=== PATIENT | male | born 1975 | race Caucasian/White ===

== ENCOUNTER 2024-09-01 07:55 | Outpatient (AMB) | payer MEDICARE, SELFPAY ==
--- OUTSIDE RECORDS SUMMARY | 2024-09-01 07:58 | XMS_ITS | Encounter Summary ---
Author Organization [employer] Address [address] [place] [address] Care Team Providers Care Shop Worker Name Role Phone Robert Moon MD Primary Care Provider [phone] Encounter Details Date Type Department Care Team (Latest Contact Info) Description 04/13/2024 Lab Requisition [facility] - Main Lab [address] [facility] [place] [address] Robert Moon MD [address] [place] [address] [address] SINAN Aguirre Schizoaffective disorder, unspecified (CMS/HCC V24, CMS/HCC V28) Social History Tobacco Use Types Packs/Day Years Used Date Smoking Tobacco: Never Assessed Sex and Gender Information Value Date Recorded Sex Assigned at Not on file Legal Sex Male 10:23 PM EST Gender Identity Not on file Sexual Orientation Not on file documented as of this encounter Plan of Treatment Not on file documented as of this encounter Procedures Procedure Name Priority Date/Time Associated Diagnosis Comments LIPID PANEL WITH REFLEX TO DIRECT LDL Routine 04/13/2024 6:55 AM EST Schizoaffective disorder, unspecified (CMS/HCC) CBC WITH AUTO DIFFERENTIAL Routine 04/13/2024 6:55 AM EST Schizoaffective disorder, unspecified (CMS/HCC) LAVENDER - EDTA Routine 04/13/2024 6:55 AM EST Schizoaffective disorder, unspecified (CMS/HCC) CBC AND DIFFERENTIAL Routine 04/13/2024 6:55 AM EST Schizoaffective disorder, unspecified (CMS/HCC) HEMOGLOBIN A1C Routine 04/13/2024 6:55 AM EST Schizoaffective disorder, unspecified (CMS/HCC) AMMONIA Routine 04/13/2024 6:55 AM EST Schizoaffective disorder, unspecified (CMS/HCC) COMPREHENSIVE METABOLIC PANEL Routine 04/13/2024 6:55 AM EST Schizoaffective disorder, unspecified (CMS/HCC) documented in this encounter Results * Lavender tube (04/13/2024 6:55 AM EST) Pathologist [facility] Extra Tube Hold for add-ons. 04/13/2024 9:01 AM [facility] Comment:Auto resulted. Blood Venous blood specimen / Unknown 04/13/2024 6:55 AM EST 04/13/2024 7:18 AM EST us Robert Moon MD LAB BLOOD ORDERABLES Final Resul t [facility] [address] [place] [address], * (ABNORMAL) CBC auto differential (04/13/2024 6:55 AM EST) [facility] WBC 4.7(L) 4.8 - 10.8 K/mcL LAB HEMETOLOGY METHOD 04/13/2024 7:32 AM [facility] RBC 5.30 4.50 - 5.50 M/mcL LAB HEMETOLOGY METHOD 04/13/2024 7:32 AM [facility] Hemoglobin 13.3(L) 13.5 - 17.5 g/dL LAB HEMETOLOGY METHOD 04/13/2024 7:32 AM [facility] Hematocrit 42.7 42.0 - 54.0 % LAB HEMETOLOGY METHOD 04/13/2024 7:32 AM [facility] MCV 80.7 79.0 - 98.0 FL LAB HEMETOLOGY METHOD 04/13/2024 7:32 AM [facility] MCH 25.1(L) 27.0 - 32.0 pcg LAB HEMETOLOGY METHOD 04/13/2024 7:32 AM [facility] MCHC 31.1(L) 32.0 - 37.0 g/dL LAB HEMETOLOGY METHOD 04/13/2024 7:32 AM [facility] RDW 15.0 11.0 - 15.0 % LAB HEMETOLOGY METHOD 04/13/2024 7:32 AM [facility] Platelets 260 130 - 400 K/mcL LAB HEMETOLOGY METHOD 04/13/2024 7:32 AM [facility] MPV 9.6 7.0 - 11.0 FL LAB HEMETOLOGY METHOD 04/13/2024 7:32 AM [facility] NRBC 0.0 <1.0 % LAB HEMETOLOGY METHOD 04/13/2024 7:32 AM [facility] NRBC Absolute 0.00 <0.10 K/mcL LAB HEMETOLOGY METHOD 04/13/2024 7:32 AM [facility] Neutrophils Relative 54.6 % LAB HEMETOLOGY METHOD 04/13/2024 7:32 AM [facility] Lymphocytes Relative 30.8 % LAB HEMETOLOGY METHOD 04/13/2024 7:32 AM [facility] Monocytes Relative 9.7 % LAB HEMETOLOGY METHOD 04/13/2024 7:32 AM [facility] Eosinophils Relative 4.3 % LAB HEMETOLOGY METHOD 04/13/2024 7:32 AM [facility] Basophils Relative 0.4 % LAB HEMETOLOGY METHOD 04/13/2024 7:32 AM [facility] Immature Granulocytes Relative 0.2 % LAB HEMETOLOGY METHOD 04/13/2024 7:32 AM [facility] Neutrophils Absolute 2.54 1.50 - 7.00 K/mcL LAB HEMETOLOGY METHOD 04/13/2024 7:32 AM EST [facility] Lymphocytes Absolute 1.43 1.00 - 5.00 K/mcL LAB HEMETOLOGY METHOD 04/13/2024 7:32 AM EST [facility] Monocytes Absolute 0.45 0.20 - 1.00 K/mcL LAB HEMETOLOGY METHOD 04/13/2024 7:32 AM EST [facility] Eosinophils Absolute 0.20 0.00 - 0.50 K/[facility] LAB HEMETOLOGY METHOD 04/13/2024 7:32 AM EST [facility] Basophils Absolute 0.02 0.00 - 0.20 K/[facility] LAB HEMETOLOGY METHOD 04/13/2024 7:32 AM EST [facility] Immature Granulocytes Absolute 0.01 0.00 - 0.03 K/[facility] LAB HEMETOLOGY METHOD 04/13/2024 7:32 AM EST [facility] Blood Venous blood specimen / Unknown 04/13/2024 6:55 AM EST 04/13/2024 7:15 AM EST us Robert Moon MD LAB BLOOD ORDERABLES Final Resul t Performing Organization Address City/[facility]/ZIP Co de Phone Number [facility] [address] [place] [address], [place] [phone] * (ABNORMAL) Ammonia (04/13/2024 6:55 AM EST) Ammonia 48(H) 11 - 35 mcmol/L LAB CHEMISTRY METHOD 04/13/2024 7:42 AM EST [facility] Blood Venous blood specimen / Unknown 04/13/2024 6:55 AM EST 04/13/2024 7:15 AM EST us Robert Moon MD LAB BLOOD ORDERABLES Final Resul t [facility] [address] [place] [address], [place] [phone] * (ABNORMAL) Hemoglobin A1c (04/13/2024 6:55 AM EST) Pathologist [facility] Hemoglobin A1C 8.5(H) <6.5 % LAB CHEMISTRY METHOD 04/13/2024 12:40 PM EST [facility] Mean Bld Glu Estim. 197 mg/dL LAB CHEMISTRY METHOD 04/13/2024 12:40 PM [facility] Blood Venous blood specimen / Unknown 04/13/2024 6:55 AM EST 04/13/2024 7:15 AM EST Robert Moon MD LAB BLOOD ORDERABLES Final Resul t [facility] [address] [place] [address], [place] [phone] * (ABNORMAL) Lipid panel with reflex to direct LDL (04/13/2024 6:55 AM EST) Pathologist [facility] Cholesterol 167 0 - 200 mg/dL LAB CHEMISTRY METHOD 04/13/2024 7:47 AM [facility] Triglycerides 161(H) 0 - 150 mg/dL LAB CHEMISTRY METHOD 04/13/2024 7:47 AM [facility] HDL 38(L) >=40 mg/dL LAB CHEMISTRY METHOD 04/13/2024 7:47 AM [facility] LDL Calculated 97 0 - 100 mg/dL LAB CHEMISTRY METHOD 04/13/2024 7:47 AM [facility] VLDL Cholesterol James 32.2 mg/dL LAB CHEMISTRY METHOD 04/13/2024 7:47 AM [facility] Non HDL Chol. (LDL+VLDL) 129 <145 mg/dL LAB CHEMISTRY METHOD 04/13/2024 7:47 AM [facility] Chol/HDL Ratio 4.4 0.0 - 4.4 LAB CHEMISTRY METHOD 04/13/2024 7:47 AM [facility] Blood Venous blood specimen / Unknown 04/13/2024 6:55 AM EST 04/13/2024 7:15 AM EST us Robert Moon MD LAB BLOOD ORDERABLES Final Resul t [facility] [address] [place] [address], * (ABNORMAL) Comprehensive metabolic panel (04/13/2024 6:55 AM EST) Sodium 134 133 - 145 mmol/L LAB CHEMISTRY METHOD 04/13/2024 7:47 AM [facility] Potassium 4.1 3.5 - 5.5 mmol/L LAB CHEMISTRY METHOD 04/13/2024 7:47 AM [facility] Chloride 100 96 - 110 mmol/L LAB CHEMISTRY METHOD 04/13/2024 7:47 AM [facility] CO2 27 21 - 32 mmol/L LAB CHEMISTRY METHOD 04/13/2024 7:47 AM [facility] Anion Gap 7 3 - 11 LAB CHEMISTRY METHOD 04/13/2024 7:47 AM [facility] Glucose 203(H) 70 - 100 mg/dL LAB CHEMISTRY METHOD 04/13/2024 7:47 AM [facility] BUN 13 5 - 25 mg/dL LAB CHEMISTRY METHOD 04/13/2024 7:47 AM [facility] Creatinine 1.06 0.70 - 1.30 mg/dL LAB CHEMISTRY METHOD 04/13/2024 7:47 AM [facility] eGFR 85 >=60 mL/min/1. 73m2 LAB CHEMISTRY METHOD 04/13/2024 7:47 AM [facility] Comment:Calculation based on the??Chronic Kidney Disease Epidemiology Collaboration (CKD-EPI) equation refit??without adjustment for race. BUN/Creatinine Ratio 12.3 LAB CHEMISTRY METHOD 04/13/2024 7:47 AM [facility] Calcium 9.5 8.5 - 10.5 mg/dL LAB CHEMISTRY METHOD 04/13/2024 7:47 AM [facility] AST (SGOT) 24 10 - 42 unit/L LAB CHEMISTRY METHOD 04/13/2024 7:47 AM [facility] ALT (SGPT) 27 10 - 60 unit/L LAB CHEMISTRY METHOD 04/13/2024 7:47 AM [facility] Alkaline Phosphatase 85 42 - 121 unit/L LAB CHEMISTRY METHOD 04/13/2024 7:47 AM [facility] Total Protein 7.7 6.0 - 8.0 g/dL LAB CHEMISTRY METHOD 04/13/2024 7:47 AM [facility] Albumin 4.0 3.2 - 5.0 g/dL LAB CHEMISTRY METHOD 04/13/2024 7:47 AM [facility] Total Bilirubin 0.4 0.0 - 1.4 mg/dL LAB CHEMISTRY METHOD 04/13/2024 7:47 AM [facility] Blood Venous blood specimen / Unknown 04/13/2024 6:55 AM EST 04/13/2024 7:15 AM EST us Robert Moon MD LAB BLOOD ORDERABLES Final Resul t [facility] [address] [place] [address], [place] [phone] documented in this encounter Visit Diagnoses Diagnosis Schizoaffective disorder, unspecified (CMS/HCC V24, CMS/HCC V28) documented in this encounter Care Teams Shop Worker Relationship Specialty Start Date End Date Robert Moon MD [address] [facility] SINAN Aguirre PCP - General Internal Medicine 06/27/24 documented as of this encounter
--- OUTSIDE RECORDS SUMMARY | 2024-09-01 07:58 | XMS_ITS | Encounter Summary ---
Author Organization [employer] Address [address] [place] [address] Care Team Providers Care Training Specialist Name Role Phone Robert Moon MD Primary Care Provider [phone] Encounter Details Date Type Department Care Team (Latest Contact Info) Description 07/14/2024 Lab Requisition [facility] - Main Lab [address] [facility] [place] [employer] [place] [address] Robert Moon MD [address] [place] [address] [address] SINAN Aguirre Schizoaffective disorder, unspecified (CMS/HCC V24, CMS/HCC V28); Type 2 diabetes mellitus without complications (CMS/HCC V24, CMS/HCC V28); Hyperlipidemia, unspecified Social History Tobacco Use Types Packs/Day Years [...] PANEL WITH REFLEX TO DIRECT LDL Routine 07/14/2024 6:30 AM EST Schizoaffective disorder, unspecified (CMS/HCC) Type 2 diabetes mellitus without complications (CMS/HCC) Hyperlipidemia, unspecified CBC WITH AUTO DIFFERENTIAL Routine 07/14/2024 6:30 AM EST Schizoaffective disorder, unspecified (CMS/HCC) Type 2 diabetes mellitus without complications (CMS/HCC) Hyperlipidemia, unspecified LAVENDER - EDTA Routine 07/14/2024 6:30 AM EST Schizoaffective disorder, unspecified (CMS/HCC) Type 2 diabetes mellitus without complications (CMS/HCC) Hyperlipidemia, unspecified CBC AND DIFFERENTIAL Routine 07/14/2024 6:30 AM EST Schizoaffective disorder, unspecified (CMS/HCC) Type 2 diabetes mellitus without complications (CMS/HCC) Hyperlipidemia, unspecified HEMOGLOBIN A1C Routine 07/14/2024 6:30 AM EST Schizoaffective disorder, unspecified (CMS/HCC) Type 2 diabetes mellitus without complications (CMS/HCC) Hyperlipidemia, unspecified AMMONIA Routine 07/14/2024 6:30 AM EST Schizoaffective disorder, unspecified (CMS/HCC) Type 2 diabetes mellitus without complications (CMS/HCC) Hyperlipidemia, unspecified COMPREHENSIVE METABOLIC PANEL Routine 07/14/2024 6:30 AM EST Schizoaffective disorder, unspecified (CMS/HCC) Type 2 diabetes mellitus without complications (CMS/HCC) Hyperlipidemia, unspecified documented in this encounter Results * Lavender tube (07/14/2024 6:30 AM EST) Pathologist [facility] Extra Tube Hold for add-ons. 07/14/2024 9:01 AM EST [facility] Comment:Auto resulted. Blood Venous blood specimen / Unknown 07/14/2024 6:30 AM EST 07/14/2024 7:29 AM EST us Robert Moon MD LAB BLOOD ORDERABLES Final Resul t [facility] [address] [place] [address], * (ABNORMAL) CBC auto differential (07/14/2024 6:30 AM EST) Pathologist [facility] WBC 6.5 4.8 - 10.8 K/[facility] LAB HEMETOLOGY METHOD 07/14/2024 7:40 AM EST [facility] RBC 5.60(H) 4.50 - 5.50 M/[facility] LAB HEMETOLOGY METHOD 07/14/2024 7:40 AM EST [facility] Hemoglobin 13.3(L) 13.5 - 17.5 g/dL LAB HEMETOLOGY METHOD 07/14/2024 7:40 AM [facility] Hematocrit 42.9 42.0 - 54.0 % LAB HEMETOLOGY METHOD 07/14/2024 7:40 AM [facility] MCV 76.5(L) 79.0 - 98.0 FL LAB HEMETOLOGY METHOD 07/14/2024 7:40 AM [facility] MCH 23.7(L) 27.0 - 32.0 pcg LAB HEMETOLOGY METHOD 07/14/2024 7:40 AM [facility] MCHC 31.0(L) 32.0 - 37.0 g/dL LAB HEMETOLOGY METHOD 07/14/2024 7:40 AM [facility] RDW 15.9(H) 11.0 - 15.0 % LAB HEMETOLOGY METHOD 07/14/2024 7:40 AM [facility] Platelets 274 130 - 400 K/mcL LAB HEMETOLOGY METHOD 07/14/2024 7:40 AM [facility] MPV 9.5 7.0 - 11.0 FL LAB HEMETOLOGY METHOD 07/14/2024 7:40 AM [facility] NRBC 0.0 <1.0 % LAB HEMETOLOGY METHOD 07/14/2024 7:40 AM [facility] NRBC Absolute 0.00 <0.10 K/mcL LAB HEMETOLOGY METHOD 07/14/2024 7:40 AM [facility] Neutrophils Relative 57.9 % LAB HEMETOLOGY METHOD 07/14/2024 7:40 AM [facility] Lymphocytes Relative 30.1 % LAB HEMETOLOGY METHOD 07/14/2024 7:40 AM [facility] Monocytes Relative 7.8 % LAB HEMETOLOGY METHOD 07/14/2024 7:40 AM EST [facility] Eosinophils Relative 3.3 % LAB HEMETOLOGY METHOD 07/14/2024 7:40 AM [facility] Basophils Relative 0.6 % LAB HEMETOLOGY METHOD 07/14/2024 7:40 AM [facility] Immature Granulocytes Relative 0.3 % LAB HEMETOLOGY METHOD 07/14/2024 7:40 AM EST [facility] Neutrophils Absolute 3.74 1.50 - 7.00 K/mcL LAB HEMETOLOGY METHOD 07/14/2024 7:40 AM EST [facility] Lymphocytes Absolute 1.94 1.00 - 5.00 K/mcL LAB HEMETOLOGY METHOD 07/14/2024 7:40 AM [facility] Monocytes Absolute 0.50 0.20 - 1.00 K/mcL LAB HEMETOLOGY METHOD 07/14/2024 7:40 AM EST [facility] Eosinophils Absolute 0.21 0.00 - 0.50 K/mcL LAB HEMETOLOGY METHOD 07/14/2024 7:40 AM EST [facility] Basophils Absolute 0.04 0.00 - 0.20 K/mcL LAB HEMETOLOGY METHOD 07/14/2024 7:40 AM [facility] Immature Granulocytes Absolute 0.02 0.00 - 0.03 K/mcL LAB HEMETOLOGY METHOD 07/14/2024 7:40 AM EST [facility] Blood Venous blood specimen / Unknown 07/14/2024 6:30 AM EST 07/14/2024 7:29 AM EST us Robert Moon MD LAB BLOOD ORDERABLES Final Resul t [facility] [address] [place] [address], * (ABNORMAL) Hemoglobin A1c (07/14/2024 6:30 AM EST) Hemoglobin A1C 9.4(H) <6.5 % LAB CHEMISTRY METHOD 07/14/2024 10:22 AM [facility] Mean Bld Glu Estim. 223 mg/dL LAB CHEMISTRY METHOD 07/14/2024 10:22 AM [facility] Blood Venous blood specimen / Unknown 07/14/2024 6:30 AM EST 07/14/2024 7:29 AM EST us Robert Moon MD LAB BLOOD ORDERABLES Final Resul t [facility] [address] [place] [address], [place] [phone] * (ABNORMAL) Lipid panel with reflex to direct LDL (07/14/2024 6:30 AM EST) Cholesterol 118 0 - 200 mg/dL LAB CHEMISTRY METHOD 07/14/2024 8:43 AM [facility] Triglycerides 214(H) 0 - 150 mg/dL LAB CHEMISTRY METHOD 07/14/2024 8:43 AM [facility] HDL 26(L) >=40 mg/dL LAB CHEMISTRY METHOD 07/14/2024 8:43 AM [facility] LDL Calculated 49 0 - 100 mg/dL LAB CHEMISTRY METHOD 07/14/2024 8:43 AM [facility] VLDL Cholesterol James 42.8 mg/dL LAB CHEMISTRY METHOD 07/14/2024 8:43 AM [facility] Non HDL Chol. (LDL+VLDL) 92 <145 mg/dL LAB CHEMISTRY METHOD 07/14/2024 8:43 AM [facility] Chol/HDL Ratio 4.5(H) 0.0 - 4.4 LAB CHEMISTRY METHOD 07/14/2024 8:43 AM [facility] Blood Venous blood specimen / Unknown 07/14/2024 6:30 AM EST 07/14/2024 7:29 AM EST us Robert Moon MD LAB BLOOD ORDERABLES Final Resul t Performing Organization Address [facility]/ZIP Co de Phone Number [facility] [address] [place] [address], [place] [phone] * (ABNORMAL) Ammonia (07/14/2024 6:30 AM EST) Ammonia 46(H) 11 - 35 mcmol/L LAB CHEMISTRY METHOD 07/14/2024 8:13 AM EST [facility] Blood Venous blood specimen / Unknown 07/14/2024 6:30 AM EST 07/14/2024 7:29 AM EST us Robert Moon MD LAB BLOOD ORDERABLES Final Resul t Performing Organization Address [facility]/ZIP Co de Phone Number [facility] [address] [place] [address], [place] [phone] * (ABNORMAL) Comprehensive metabolic panel (07/14/2024 6:30 AM EST) Pathologist [facility] Sodium 134 133 - 145 mmol/L LAB CHEMISTRY METHOD 07/14/2024 8:42 AM [facility] Potassium 4.6 3.5 - 5.5 mmol/L LAB CHEMISTRY METHOD 07/14/2024 8:42 AM [facility] Chloride 99 96 - 110 mmol/L LAB CHEMISTRY METHOD 07/14/2024 8:42 AM [facility] CO2 26 21 - 32 mmol/L LAB CHEMISTRY METHOD 07/14/2024 8:42 AM [facility] Anion Gap 9 3 - 11 LAB CHEMISTRY METHOD 07/14/2024 8:42 AM [facility] Glucose 258(H) 70 - 100 mg/dL LAB CHEMISTRY METHOD 07/14/2024 8:42 AM [facility] BUN 16 5 - 25 mg/dL LAB CHEMISTRY METHOD 07/14/2024 8:42 AM [facility] Creatinine 1.09 0.70 - 1.30 mg/dL LAB CHEMISTRY METHOD 07/14/2024 8:42 AM [facility] eGFR 83 >=60 mL/min/1. 73m2 LAB CHEMISTRY METHOD 07/14/2024 8:42 AM [facility] Comment:Calculation based on the??Chronic Kidney Disease Epidemiology Collaboration (CKD-EPI) equation refit??without adjustment for race. BUN/Creatinine Ratio 14.7 LAB CHEMISTRY METHOD 07/14/2024 8:42 AM [facility] Calcium 9.3 8.5 - 10.5 mg/dL LAB CHEMISTRY METHOD 07/14/2024 8:42 AM [facility] AST (SGOT) 23 10 - 42 unit/L LAB CHEMISTRY METHOD 07/14/2024 8:42 AM [facility] ALT (SGPT) 28 10 - 60 unit/L LAB CHEMISTRY METHOD 07/14/2024 8:42 AM [facility] Alkaline Phosphatase 96 42 - 121 unit/L LAB CHEMISTRY METHOD 07/14/2024 8:42 AM [facility] Total Protein 7.8 6.0 - 8.0 g/dL LAB CHEMISTRY METHOD 07/14/2024 8:42 AM [facility] Albumin 4.1 3.2 - 5.0 g/dL LAB CHEMISTRY METHOD 07/14/2024 8:42 AM [facility] Total Bilirubin 0.3 0.0 - 1.4 mg/dL LAB CHEMISTRY METHOD 07/14/2024 8:42 AM [facility] Blood Venous blood specimen / Unknown 07/14/2024 6:30 AM EST 07/14/2024 7:29 AM EST Robert Moon MD LAB BLOOD ORDERABLES Final Resul t [facility] [address] [place] [address], documented in this encounter Visit Diagnoses Diagnosis Schizoaffective disorder, unspecified ([facility] V24, [facility] V28) Type 2 diabetes mellitus without complications ([facility] V24, [facility] V28) Hyperlipidemia, unspecified documented in this encounter Care Teams Training Specialist Relationship Specialty Start Date End Date Robert Moon MD [address] [place] [address] Dr [address] [place], [place] PCP - General Internal Medicine 06/27/24 documented as of this encounter
--- OUTSIDE RECORDS SUMMARY | 2024-09-01 07:58 | XMS_ITS | Encounter Summary ---
Author Organization [facility] Address [address] [place] [address] Care Team Providers Care Operating Room Coordinator Name Role Phone Robert Moon MD Primary Care Provider Encounter Details Date Type Department Care Team (Late st Contact Info) Description 07/05/2024 Lab Requisition [facility] - Main Lab [address] [place] [address] Robert Moon MD [address] [place] [address] [address] [place] Other mcfp (current) drug therapy Social History Tobacco Use Types Packs/Day Years [...] Procedure Name Priority Date/Time Associated Diagnosis Comments CBC WITH AUTO DIFFERENTIAL Routine 07/05/2024 7:30 AM EST Other mcfp (current) drug therapy CBC AND DIFFERENTIAL Routine 07/05/2024 7:30 AM EST Other mcfp (current) drug therapy documented in this encounter Results * (ABNORMAL) CBC auto differential (07/05/2024 7:30 AM EST) WBC 6.0 4.8 - 10.8 K/mcL LAB HEMETOLOGY METHOD 07/05/2024 8:18 AM EST [facility] LAB RBC 5.70(H) 4.50 - 5.50 M/mcL LAB HEMETOLOGY METHOD 07/05/2024 8:18 AM EST [facility] LAB Hemoglobin 13.6 13.5 - 17.5 g/dL LAB HEMETOLOGY METHOD 07/05/2024 8:18 AM [facility] LAB Hematocrit 44.1 42.0 - 54.0 % LAB HEMETOLOGY METHOD 07/05/2024 8:18 AM [facility] LAB MCV 78.1(L) 79.0 - 98.0 FL LAB HEMETOLOGY METHOD 07/05/2024 8:18 AM [facility] LAB MCH 24.1(L) 27.0 - 32.0 pcg LAB HEMETOLOGY METHOD 07/05/2024 8:18 AM [facility] LAB MCHC 30.8(L) 32.0 - 37.0 g/dL LAB HEMETOLOGY METHOD 07/05/2024 8:18 AM [facility] LAB RDW 15.5(H) 11.0 - 15.0 % LAB HEMETOLOGY METHOD 07/05/2024 8:18 AM [facility] LAB Platelets 302 130 - 400 K/mcL LAB HEMETOLOGY METHOD 07/05/2024 8:18 AM [facility] LAB MPV 9.9 7.0 - 11.0 FL LAB HEMETOLOGY METHOD 07/05/2024 8:18 AM [facility] LAB NRBC 0.0 <1.0 % LAB HEMETOLOGY METHOD 07/05/2024 8:18 AM [facility] LAB NRBC Absolute 0.00 <0.10 K/mcL LAB HEMETOLOGY METHOD 07/05/2024 8:18 AM [facility] LAB Neutrophils Relative 62.7 % LAB HEMETOLOGY METHOD 07/05/2024 8:18 AM [facility] LAB Lymphocytes Relative 25.9 % LAB HEMETOLOGY METHOD 07/05/2024 8:18 AM [facility] Monocytes Relative 8.5 % LAB HEMETOLOGY METHOD 07/05/2024 8:18 AM [facility] LAB Eosinophils Relative 2.3 % LAB HEMETOLOGY METHOD 07/05/2024 8:18 AM EST [facility] LAB Basophils Relative 0.3 % LAB HEMETOLOGY METHOD 07/05/2024 8:18 AM [facility] LAB Immature Granulocytes Relative 0.3 % LAB HEMETOLOGY METHOD 07/05/2024 8:18 AM [facility] LAB Neutrophils Absolute 3.75 1.50 - 7.00 K/mcL LAB HEMETOLOGY METHOD 07/05/2024 8:18 AM [facility] LAB Lymphocytes Absolute 1.55 1.00 - 5.00 K/mcL LAB HEMETOLOGY METHOD 07/05/2024 8:18 AM [facility] LAB Monocytes Absolute 0.51 0.20 - 1.00 K/mcL LAB HEMETOLOGY METHOD 07/05/2024 8:18 AM [facility] LAB Eosinophils Absolute 0.14 0.00 - 0.50 K/mcL LAB HEMETOLOGY METHOD 07/05/2024 8:18 AM [facility] LAB Basophils Absolute 0.02 0.00 - 0.20 K/mcL LAB HEMETOLOGY METHOD 07/05/2024 8:18 AM [facility] LAB Immature Granulocytes Absolute 0.02 0.00 - 0.03 K/mcL LAB HEMETOLOGY METHOD 07/05/2024 8:18 AM [facility] LAB Blood Venous blood specimen / Unknown 07/05/2024 7:30 AM EST 07/05/2024 8:09 AM EST us Robert Moon MD LAB BLOOD ORDERABLES Final Resul t [facility]) [facility] [address] [place] [address], documented in this encounter Visit Diagnoses Diagnosis Other mcfp (current) drug therapy documented in this encounter Care Teams Operating Room Coordinator Relationship Specialty Start Date End Date Robert Moon MD [address] [place] [address] Dr [address] SINAN Aguirre PCP - General Internal Medicine 06/27/24 documented as of this encounter
--- OUTSIDE RECORDS SUMMARY | 2024-09-01 07:58 | XMS_ITS | Encounter Summary ---
Author Organization [facility] Address [address] [place] [address] Care Team Providers Care Face Boss Name Role Phone Robert Moon MD Primary Care Provider [phone] Encounter Details Date Type Department Care Team (Late st Contact Info) Description 06/02/2024 Lab Requisition [facility] - Main Lab [address] [place] [address] Robert Moon MD [address] [place] [address] [address] [place] Other alf (current) drug therapy Social History Tobacco Use [...] Diagnosis Comments CBC WITH AUTO DIFFERENTIAL Routine 06/02/2024 6:20 AM EST Other alf (current) drug therapy CBC AND DIFFERENTIAL Routine 06/02/2024 6:20 AM EST Other alf (current) drug therapy documented in this encounter Results * (ABNORMAL) CBC auto differential (06/02/2024 6:20 AM EST) WBC 5.6 4.8 - 10.8 K/mcL LAB HEMETOLOGY METHOD 06/02/2024 7:54 AM EST [facility] LAB RBC 5.40 4.50 - 5.50 M/mcL LAB HEMETOLOGY METHOD 06/02/2024 7:54 AM EST [facility] LAB Hemoglobin 13.0(L) 13.5 - 17.5 g/dL LAB HEMETOLOGY METHOD 06/02/2024 7:54 AM [facility] LAB Hematocrit 43.2 42.0 - 54.0 % LAB HEMETOLOGY METHOD 06/02/2024 7:54 AM [facility] LAB MCV 80.6 79.0 - 98.0 FL LAB HEMETOLOGY METHOD 06/02/2024 7:54 AM [facility] LAB MCH 24.3(L) 27.0 - 32.0 pcg LAB HEMETOLOGY METHOD 06/02/2024 7:54 AM [facility] LAB MCHC 30.1(L) 32.0 - 37.0 g/dL LAB HEMETOLOGY METHOD 06/02/2024 7:54 AM [facility] LAB RDW 15.2(H) 11.0 - 15.0 % LAB HEMETOLOGY METHOD 06/02/2024 7:54 AM [facility] LAB Platelets 301 130 - 400 K/mcL LAB HEMETOLOGY METHOD 06/02/2024 7:54 AM [facility] LAB MPV 9.5 7.0 - 11.0 FL LAB HEMETOLOGY METHOD 06/02/2024 7:54 AM [facility] LAB NRBC 0.0 <1.0 % LAB HEMETOLOGY METHOD 06/02/2024 7:54 AM [facility] LAB NRBC Absolute 0.00 <0.10 K/mcL LAB HEMETOLOGY METHOD 06/02/2024 7:54 AM [facility] Neutrophils Relative 48.5 % LAB HEMETOLOGY METHOD 06/02/2024 7:54 AM [facility] Lymphocytes Relative 36.9 % LAB HEMETOLOGY METHOD 06/02/2024 7:54 AM [facility] Monocytes Relative 9.2 % LAB HEMETOLOGY METHOD 06/02/2024 7:54 AM [facility] Eosinophils Relative 4.5 % LAB HEMETOLOGY METHOD 06/02/2024 7:54 AM [facility] Basophils Relative 0.5 % LAB HEMETOLOGY METHOD 06/02/2024 7:54 AM [facility] Immature Granulocytes Relative 0.4 % LAB HEMETOLOGY METHOD 06/02/2024 7:54 AM [facility] Neutrophils Absolute 2.70 1.50 - 7.00 K/mcL LAB HEMETOLOGY METHOD 06/02/2024 7:54 AM [facility] Lymphocytes Absolute 2.05 1.00 - 5.00 K/mcL LAB HEMETOLOGY METHOD 06/02/2024 7:54 AM [facility] Monocytes Absolute 0.51 0.20 - 1.00 K/mcL LAB HEMETOLOGY METHOD 06/02/2024 7:54 AM [facility] Eosinophils Absolute 0.25 0.00 - 0.50 K/mcL LAB HEMETOLOGY METHOD 06/02/2024 7:54 AM [facility] Basophils Absolute 0.03 0.00 - 0.20 K/mcL LAB HEMETOLOGY METHOD 06/02/2024 7:54 AM [facility] Immature Granulocytes Absolute 0.02 0.00 - 0.03 K/mcL LAB HEMETOLOGY METHOD 06/02/2024 7:54 AM [facility] Blood Venous blood specimen / Unknown 06/02/2024 6:20 AM EST 06/02/2024 7:33 AM EST us Robert Moon MD LAB BLOOD ORDERABLES Final Resul t [facility]) [facility] [address] [place] [address], documented in this encounter Visit Diagnoses Diagnosis Other termite helper (current) drug therapy documented in this encounter Care Teams Face Boss Relationship Specialty Start Date End Date Robert Moon MD [address] [place] [address] Dr [address] SINAN Aguirre PCP - General Internal Medicine 06/27/24 documented as of this encounter
--- OUTSIDE RECORDS SUMMARY | 2024-09-01 07:58 | XMS_ITS | Encounter Summary ---
Author Organization [employer] [facility] Address [address] [place] [address] Care Team Providers Care Senior Ux Designer Name Role Phone Robert Moon MD Primary Care Provider [phone] Encounter Details Date Type Department Care Team (Late st Contact Info) Description 08/09/2024 Lab Requisition [facility] - Main Lab [address] [place] [address] Robert Moon MD [address] [place] [address] [address] [place] Other care home (current) drug therapy Social History Tobacco Use [...] Diagnosis Comments CBC WITH AUTO DIFFERENTIAL Routine 08/09/2024 4:55 AM EDT Other care home (current) drug therapy CBC AND DIFFERENTIAL Routine 08/09/2024 4:55 AM EDT Other care home (current) drug therapy documented in this encounter Results * (ABNORMAL) CBC auto differential (08/09/2024 4:55 AM EDT) WBC 7.0 4.8 - 10.8 K/mcL LAB HEMETOLOGY METHOD 08/09/2024 5:44 AM EDT [facility] RBC 5.10 4.50 - 5.50 M/mcL LAB HEMETOLOGY METHOD 08/09/2024 5:44 AM EDT [facility] Hemoglobin 11.9(L) 13.5 - 17.5 g/dL LAB HEMETOLOGY METHOD 08/09/2024 5:44 AM T [facility] LAB Hematocrit 39.6(L) 42.0 - 54.0 % LAB HEMETOLOGY METHOD 08/09/2024 5:44 AM [facility] LAB MCV 77.8(L) 79.0 - 98.0 FL LAB HEMETOLOGY METHOD 08/09/2024 5:44 AM [facility] LAB MCH 23.4(L) 27.0 - 32.0 pcg LAB HEMETOLOGY METHOD 08/09/2024 5:44 AM [facility] LAB MCHC 30.1(L) 32.0 - 37.0 g/dL LAB HEMETOLOGY METHOD 08/09/2024 5:44 AM [facility] LAB RDW 15.9(H) 11.0 - 15.0 % LAB HEMETOLOGY METHOD 08/09/2024 5:44 AM [facility] LAB Platelets 251 130 - 400 K/mcL LAB HEMETOLOGY METHOD 08/09/2024 5:44 AM [facility] LAB MPV 9.9 7.0 - 11.0 FL LAB HEMETOLOGY METHOD 08/09/2024 5:44 AM [facility] LAB NRBC 0.0 <1.0 % LAB HEMETOLOGY METHOD 08/09/2024 5:44 AM [facility] LAB NRBC Absolute 0.00 <0.10 K/mcL LAB HEMETOLOGY METHOD 08/09/2024 5:44 AM [facility] Neutrophils Relative 50.9 % LAB HEMETOLOGY METHOD 08/09/2024 5:44 AM [facility] LAB Lymphocytes Relative 34.4 % LAB HEMETOLOGY METHOD 08/09/2024 5:44 AM [facility] LAB Monocytes Relative 9.1 % LAB HEMETOLOGY METHOD 08/09/2024 5:44 AM EDT [facility] Eosinophils Relative 4.7 % LAB HEMETOLOGY METHOD 08/09/2024 5:44 AM EDT [facility] Basophils Relative 0.6 % LAB HEMETOLOGY METHOD 08/09/2024 5:44 AM EDT [facility] LAB Immature Granulocytes Relative 0.3 % LAB HEMETOLOGY METHOD 08/09/2024 5:44 AM EDT [facility] Neutrophils Absolute 3.58 1.50 - 7.00 K/mcL LAB HEMETOLOGY METHOD 08/09/2024 5:44 AM EDT [facility] Lymphocytes Absolute 2.42 1.00 - 5.00 K/mcL LAB HEMETOLOGY METHOD 08/09/2024 5:44 AM EDT [facility] Monocytes Absolute 0.64 0.20 - 1.00 K/mcL LAB HEMETOLOGY METHOD 08/09/2024 5:44 AM EDT [facility] Eosinophils Absolute 0.33 0.00 - 0.50 K/mcL LAB HEMETOLOGY METHOD 08/09/2024 5:44 AM EDT [facility] Basophils Absolute 0.04 0.00 - 0.20 K/mcL LAB HEMETOLOGY METHOD 08/09/2024 5:44 AM EDT [facility] Immature Granulocytes Absolute 0.02 0.00 - 0.03 K/mcL LAB HEMETOLOGY METHOD 08/09/2024 5:44 AM EDT [facility] Blood Venous blood specimen / Unknown 08/09/2024 4:55 AM EDT 08/09/2024 5:40 AM EDT us Robert Moon MD LAB BLOOD ORDERABLES Final Resul t [facility] [address] [place] [address], documented in this encounter Visit Diagnoses Diagnosis Other care home (current) drug therapy documented in this encounter Care Teams Senior Ux Designer Relationship Specialty Start Date End Date Robert Moon MD [address] [place] [address] Dr [address] SINAN Aguirre PCP - General Internal Medicine 06/27/24 documented as of this encounter
--- OUTSIDE RECORDS SUMMARY | 2024-09-01 07:58 | XMS_ITS | Encounter Summary ---
Author Organization [facility] Address [address] [place] [address] Care Team Providers Care Subassembly Supervisor Name Role Phone Robert Moon MD Primary Care Provider [phone] Encounter Details Date Type Department Care Team (Latest Contact Info) Description 08/11/2024 Lab Requisition [facility] - Main Lab [address] [facility] [place] [address] Robert Moon MD [address] [place] [address] [address] SINAN Aguirre Schizoaffective disorder, unspecified [...] PANEL WITH REFLEX TO DIRECT LDL Routine 08/11/2024 6:55 AM EDT Schizoaffective disorder, unspecified Type 2 diabetes mellitus without complications Hyperlipidemia, unspecified CBC WITH AUTO DIFFERENTIAL Routine 08/11/2024 6:55 AM EDT Schizoaffective disorder, unspecified Type 2 diabetes mellitus without complications Hyperlipidemia, unspecified LAVENDER - EDTA Routine 08/11/2024 6:55 AM EDT Schizoaffective disorder, unspecified Type 2 diabetes mellitus without complications Hyperlipidemia, unspecified CBC AND DIFFERENTIAL Routine 08/11/2024 6:55 AM EDT Schizoaffective disorder, unspecified Type 2 diabetes mellitus without complications Hyperlipidemia, unspecified THYROID STIMULATING HORMONE Routine 08/11/2024 6:55 AM EDT Schizoaffective disorder, unspecified Type 2 diabetes mellitus without complications Hyperlipidemia, unspecified HEMOGLOBIN A1C Routine 08/11/2024 6:55 AM EDT Schizoaffective disorder, unspecified Type 2 diabetes mellitus without complications Hyperlipidemia, unspecified AMMONIA Routine 08/11/2024 6:55 AM EDT Schizoaffective disorder, unspecified Type 2 diabetes mellitus without complications Hyperlipidemia, unspecified COMPREHENSIVE METABOLIC PANEL Routine 08/11/2024 6:55 AM EDT Schizoaffective disorder, unspecified Type 2 diabetes mellitus without complications Hyperlipidemia, unspecified documented in this encounter Results * Lavender tube (08/11/2024 6:55 AM EDT) Pathologist [facility] Extra Tube Hold for add-ons. 08/11/2024 8:01 PM EDT [facility] Comment:Auto resulted. Blood Venous blood specimen / Unknown 08/11/2024 6:55 AM EDT 08/11/2024 7:32 AM EDT us Robert Moon MD LAB BLOOD ORDERABLES Final Resul t [facility] [address] [place] [address], [place] [phone] * (ABNORMAL) CBC auto differential (08/11/2024 6:55 AM EDT) WBC 7.1 4.8 - 10.8 K/[facility] LAB HEMETOLOGY METHOD 08/11/2024 8:18 AM EDT [facility] RBC 5.40 4.50 - 5.50 M/[facility] LAB HEMETOLOGY METHOD 08/11/2024 8:18 AM EDT [facility] Hemoglobin 12.5(L) 13.5 - 17.5 g/dL LAB HEMETOLOGY METHOD 08/11/2024 8:18 AM [facility] Hematocrit 41.2(L) 42.0 - 54.0 % LAB HEMETOLOGY METHOD 08/11/2024 8:18 AM [facility] LAB MCV 76.0(L) 79.0 - 98.0 FL LAB HEMETOLOGY METHOD 08/11/2024 8:18 AM [facility] LAB MCH 23.1(L) 27.0 - 32.0 pcg LAB HEMETOLOGY METHOD 08/11/2024 8:18 AM [facility] LAB MCHC 30.3(L) 32.0 - 37.0 g/dL LAB HEMETOLOGY METHOD 08/11/2024 8:18 AM [facility] LAB RDW 16.1(H) 11.0 - 15.0 % LAB HEMETOLOGY METHOD 08/11/2024 8:18 AM [facility] Platelets 296 130 - 400 K/mcL LAB HEMETOLOGY METHOD 08/11/2024 8:18 AM [facility] MPV 9.7 7.0 - 11.0 FL LAB HEMETOLOGY METHOD 08/11/2024 8:18 AM [facility] NRBC 0.0 <1.0 % LAB HEMETOLOGY METHOD 08/11/2024 8:18 AM [facility] NRBC Absolute 0.00 <0.10 K/mcL LAB HEMETOLOGY METHOD 08/11/2024 8:18 AM [facility] Neutrophils Relative 59.8 % LAB HEMETOLOGY METHOD 08/11/2024 8:18 AM [facility] Lymphocytes Relative 25.8 % LAB HEMETOLOGY METHOD 08/11/2024 8:18 AM [facility] Monocytes Relative 9.3 % LAB HEMETOLOGY METHOD 08/11/2024 8:18 AM EDT [facility] Eosinophils Relative 4.4 % LAB HEMETOLOGY METHOD 08/11/2024 8:18 AM EDT [facility] Basophils Relative 0.4 % LAB HEMETOLOGY METHOD 08/11/2024 8:18 AM EDT [facility] Immature Granulocytes Relative 0.3 % LAB HEMETOLOGY METHOD 08/11/2024 8:18 AM EDT [facility] Neutrophils Absolute 4.23 1.50 - 7.00 K/mcL LAB HEMETOLOGY METHOD 08/11/2024 8:18 AM EDT [facility] Lymphocytes Absolute 1.83 1.00 - 5.00 K/mcL LAB HEMETOLOGY METHOD 08/11/2024 8:18 AM EDT [facility] Monocytes Absolute 0.66 0.20 - 1.00 K/mcL LAB HEMETOLOGY METHOD 08/11/2024 8:18 AM EDT [facility] Eosinophils Absolute 0.31 0.00 - 0.50 K/mcL LAB HEMETOLOGY METHOD 08/11/2024 8:18 AM EDT [facility] Basophils Absolute 0.03 0.00 - 0.20 K/mcL LAB HEMETOLOGY METHOD 08/11/2024 8:18 AM EDT [facility] Immature Granulocytes Absolute 0.02 0.00 - 0.03 K/mcL LAB HEMETOLOGY METHOD 08/11/2024 8:18 AM EDT [facility] Blood Venous blood specimen / Unknown 08/11/2024 6:55 AM EDT 08/11/2024 7:26 AM EDT us Robert Moon MD LAB BLOOD ORDERABLES Final Resul t [facility] [address] [place] [address], * (ABNORMAL) Ammonia (08/11/2024 6:55 AM EDT) Ammonia 62(H) 11 - 35 mcmol/L LAB CHEMISTRY METHOD 08/11/2024 8:49 AM EDT [facility] Blood Venous blood specimen / Unknown 08/11/2024 6:55 AM EDT 08/11/2024 7:26 AM EDT us Robert Moon MD LAB BLOOD ORDERABLES Final Resul t Performing Organization Address City/[facility]/ZIP Co de Phone Number [facility] [address] [place] [address], [place] [phone] * Thyroid stimulating hormone (08/11/2024 6:55 AM EDT) Pathologist [facility] TSH 1.43 0.40 - 4.00 mcIU/mL LAB CHEMISTRY METHOD 08/11/2024 10:09 AM EDT [facility] Blood Venous blood specimen / Unknown 08/11/2024 6:55 AM EDT 08/11/2024 7:26 AM EDT us Robert Moon MD LAB BLOOD ORDERABLES Final Resul t Performing Organization Address [facility]/ZIP Co de Phone Number [facility] [address] [place] [address], [place] [phone] * (ABNORMAL) Hemoglobin A1c (08/11/2024 6:55 AM EDT) Pathologist [facility] Hemoglobin A1C 9.0(H) <6.5 % LAB CHEMISTRY METHOD 08/11/2024 9:04 AM EDT [facility] Mean Bld Glu Estim. 212 mg/dL LAB CHEMISTRY METHOD 08/11/2024 9:04 AM EDT [facility] Blood Venous blood specimen / Unknown 08/11/2024 6:55 AM EDT 08/11/2024 7:26 AM EDT us Robert Moon MD LAB BLOOD ORDERABLES Final Resul t [facility] [address] [place] [address], [place] [phone] * (ABNORMAL) Lipid panel with reflex to direct LDL (08/11/2024 6:55 AM EDT) Cholesterol 126 0 - 200 mg/dL LAB CHEMISTRY METHOD 08/11/2024 8:50 AM EDT [facility] Triglycerides 121 0 - 150 mg/dL LAB CHEMISTRY METHOD 08/11/2024 8:50 AM EDT [facility] HDL 33(L) >=40 mg/dL LAB CHEMISTRY METHOD 08/11/2024 8:50 AM EDT [facility] LDL Calculated 69 0 - 100 mg/dL LAB CHEMISTRY METHOD 08/11/2024 8:50 AM EDT [facility] VLDL Cholesterol James 24.2 mg/dL LAB CHEMISTRY METHOD 08/11/2024 8:50 AM EDT [facility] Non HDL Chol. (LDL+VLDL) 93 <145 mg/dL LAB CHEMISTRY METHOD 08/11/2024 8:50 AM EDT [facility] Chol/HDL Ratio 3.8 0.0 - 4.4 LAB CHEMISTRY METHOD 08/11/2024 8:50 AM EDT [facility] Blood Venous blood specimen / Unknown 08/11/2024 6:55 AM EDT 08/11/2024 7:26 AM EDT us Robert Moon MD LAB BLOOD ORDERABLES Final Resul t Performing Organization Address City/[facility]/ZIP Co de Phone Number [facility] [address] [place] [address], [place] [phone] * (ABNORMAL) Comprehensive metabolic panel (08/11/2024 6:55 AM EDT) Sodium 131(L) 133 - 145 mmol/L LAB CHEMISTRY METHOD 08/11/2024 8:49 AM [facility] Potassium 3.8 3.5 - 5.5 mmol/L LAB CHEMISTRY METHOD 08/11/2024 8:49 AM [facility] Chloride 98 96 - 110 mmol/L LAB CHEMISTRY METHOD 08/11/2024 8:49 AM [facility] CO2 25 21 - 32 mmol/L LAB CHEMISTRY METHOD 08/11/2024 8:49 AM [facility] Anion Gap 8 3 - 11 LAB CHEMISTRY METHOD 08/11/2024 8:49 AM [facility] Glucose 183(H) 70 - 100 mg/dL LAB CHEMISTRY METHOD 08/11/2024 8:49 AM [facility] BUN 15 5 - 25 mg/dL LAB CHEMISTRY METHOD 08/11/2024 8:49 AM [facility] Creatinine 0.98 0.70 - 1.30 mg/dL LAB CHEMISTRY METHOD 08/11/2024 8:49 AM [facility] eGFR 94 >=60 mL/min/1. 73m2 LAB CHEMISTRY METHOD 08/11/2024 8:49 AM [facility] Comment:Calculation based on the??Chronic Kidney Disease Epidemiology Collaboration (CKD-EPI) equation refit??without adjustment for race. BUN/Creatinine Ratio 15.3 LAB CHEMISTRY METHOD 08/11/2024 8:49 AM [facility] Calcium 9.3 8.5 - 10.5 mg/dL LAB CHEMISTRY METHOD 08/11/2024 8:49 AM [facility] AST (SGOT) 13 10 - 42 unit/L LAB CHEMISTRY METHOD 08/11/2024 8:49 AM [facility] ALT (SGPT) 18 10 - 60 unit/L LAB CHEMISTRY METHOD 08/11/2024 8:49 AM EDT [facility] Alkaline Phosphatase 88 42 - 121 unit/L LAB CHEMISTRY METHOD 08/11/2024 8:49 AM EDT [facility] Total Protein 7.5 6.0 - 8.0 g/dL LAB CHEMISTRY METHOD 08/11/2024 8:49 AM EDT [facility] Albumin 4.1 3.2 - 5.0 g/dL LAB CHEMISTRY METHOD 08/11/2024 8:49 AM EDT [facility] Total Bilirubin 0.5 0.0 - 1.4 mg/dL LAB CHEMISTRY METHOD 08/11/2024 8:49 AM EDT [facility] Blood Venous blood specimen / Unknown 08/11/2024 6:55 AM EDT 08/11/2024 7:26 AM EDT us Robert Moon MD LAB BLOOD ORDERABLES Final Resul t [facility] [address] [place] [address], [place] [phone] documented in this encounter Visit Diagnoses Diagnosis Schizoaffective disorder, unspecified (CMS/HCC V24, [facility] V28) Type 2 diabetes mellitus without complications (CMS/HCC V24, [facility] V28) Hyperlipidemia, unspecified documented in this encounter Care Teams Subassembly Supervisor Relationship Specialty Start Date End Date Robert Moon MD [address] [place] [address] Dr [address] [place], [place] PCP - General Internal Medicine 06/27/24 documented as of this encounter
--- OUTSIDE RECORDS SUMMARY | 2024-09-01 07:58 | XMS_ITS | Clinical Summary ---
Author Organization [facility] Address [address] [place] [address] Phone Care Team Providers Care Spray Machine Tender Name Role Phone Robert Moon MD Primary Care Provider [phone] Encounters Date Type Department Care Team Description 08/11/2024 Lab Requisition [facility] Lab [address] [place] [phone] Robert Moon MD Schizoaffective disorder, unspecified ([facility] V24, CMS/[facility] V28); Type 2 diabetes mellitus without complications (CMS/HCC V24, CMS/HCC V28); Hyperlipidemia, unspecified 08/09/2024 Lab Requisition [facility] Lab [address] [place] [phone] Robert Moon MD Other founder and chief executive officer (current) drug therapy 07/14/2024 Lab Requisition [facility] Lab [address] [place] [phone] Robert Moon MD Schizoaffective disorder, unspecified (CMS/HCC V24, CMS/HCC V28); Type 2 diabetes mellitus without complications (CMS/HCC V24, CMS/HCC V28); Hyperlipidemia, unspecified 07/05/2024 Lab Requisition [facility] Lab [address] [place] [phone] Robert Moon MD Other fdc (current) drug therapy from Last 3 Months Social History Tobacco Use Types Packs/Day Years Used Date Smoking Tobacco: Never Assessed Sex and Gender Information Value Date Recorded Sex Assigned at Not on file Legal Sex Male 10:23 PM EST Gender Identity Not on file Sexual Orientation Not on file Plan of Treatment Health Maintenance Due Date Last Done Comments Diabetes: Annual Foot Exam 09/30/1983 Diabetes: Annual Retina Eye Exam 09/30/1983 DTaP,Tdap,and Td Vaccines (1 - Tdap) 1992 Hepatitis B Vaccines (1 of 3 - 19+ 3-dose series) 1992 Pneumococcal Vaccine: 50+ Years (1 of 2 - PCV) 1992 Pneumococcal Vaccine: Pediatrics (0 to 5 Years) and At-Risk Patients (6 to 64 Years) (1 of 2 - PCV) 1992 Colorectal Cancer Screening: Colonoscopy 04/25/2022 Depression Screening 04/25/2022 HIV Screening 04/25/2022 Hepatitis C Screening 04/25/2022 Medicare Annual Wellness Visit 04/25/2022 Social Influencers of Health Screening 04/25/2022 Zoster Vaccines (1 of 2) 09/30/2023 COVID-19 Vaccine (2023-2 5 season) 2024 Diabetes: Annual Urine Albumin-Creatinine Ratio (uACR) 08/10/2024 Influenza Vaccine (Season Ended) 2025 Diabetes: Blood Sugar Contro l Test (HGBA1C) 02/11/2025 08/11/2024, 07/14/2024, 04/13/2024 Diabetes: Annual GFR (Glomerular Filtration Rate) 08/11/2025 08/11/2024, 07/14/2024, 04/13/2024 Cholesterol Screening (Lipid Panel) 08/11/2029 08/11/2024, 07/14/2024, 04/13/2024 HIB Vaccines Aged Out No longer eligi ble based on patient's age to complete this topic HPV Vaccines Aged Out No longer eligi ble based on patient's age to complete this topic Hepatitis A Vaccines Aged Out No long er eligible based on patient's age to complete this topic IPV Vaccines Aged Out No longer eligi ble based on patient's age to complete this topic MMR Vaccines Aged Out No longer eligi ble based on patient's age to complete this topic Meningococcal ACWY Vaccine Aged Out N o longer eligible based on patient's age to complete this topic Meningococcal B Vaccine Aged Out No l onger eligible based on patient's age to complete this topic RSV Immunization Patients Under 20 months Aged Out No longer eligible b ased on patient's age to complete this topic Varicella Vaccines Aged Out No longer eligible based on patient's age to complete this topic Procedures Procedure Name Priority Date/Time Associated Diagnosis Comments LAVENDER - EDTA Routine 08/11/2024 6:55 AM [...] 2 diabetes mellitus without complications Hyperlipidemia, unspecified LIPID PANEL WITH REFLEX TO DIRECT LDL [...] Hyperlipidemia, unspecified CBC WITH AUTO DIFFERENTIAL Routine 08/09/2024 4:55 AM EDT Other fdc (current) drug therapy CBC AND DIFFERENTIAL Routine 08/09/2024 4:55 AM EDT Other founder and chief executive officer (current) drug therapy LAVENDER - EDTA Routine 07/14/2024 6:30 AM [...] diabetes mellitus without complications (CMS/HCC) Hyperlipidemia, unspecified LIPID PANEL WITH REFLEX TO DIRECT LDL [...] Hyperlipidemia, unspecified CBC WITH AUTO DIFFERENTIAL Routine 07/05/2024 7:30 AM EST Other founder and chief executive officer (current) drug therapy CBC AND DIFFERENTIAL Routine 07/05/2024 7:30 AM EST Other founder and chief executive officer (current) drug therapy from Last 3 Months Results * (ABNORMAL) Lipid panel with reflex to direct LDL (08/11/2024 6:55 AM EDT) Only the most recent of2 resultswithin the time period is included. [facility] Cholesterol 126 0 - 200 mg/dL LAB CHEMISTRY METHOD 08/11/2024 8:50 AM EDT [facility] Triglycerides 121 0 - 150 mg/dL LAB CHEMISTRY METHOD 08/11/2024 8:50 AM EDT [facility] HDL 33(L) >=40 mg/dL LAB CHEMISTRY METHOD 08/11/2024 8:50 AM EDT [facility] LDL Calculated 69 0 - 100 mg/dL LAB CHEMISTRY METHOD 08/11/2024 8:50 AM EDT [facility] VLDL Cholesterol James 24.2 mg/dL LAB CHEMISTRY METHOD 08/11/2024 8:50 AM EDT [facility] Non HDL Chol. (LDL+VLDL) 93 <145 mg/dL LAB CHEMISTRY METHOD 08/11/2024 8:50 AM EDT [facility] Chol/HDL Ratio 3.8 0.0 - 4.4 LAB CHEMISTRY METHOD 08/11/2024 8:50 AM EDT [facility] Blood Venous blood specimen / Unknown 08/11/2024 6:55 AM EDT 08/11/2024 7:26 AM EDT us Robert Moon MD LAB BLOOD ORDERABLES Final Resul t [facility] [address] [place] [address], * (ABNORMAL) CBC auto differential (08/11/2024 6:55 AM EDT) Only the most recent of4 resultswithin the time period is included. WBC 7.1 4.8 - 10.8 K/mcL LAB HEMETOLOGY METHOD 08/11/2024 8:18 AM EDT [facility] RBC 5.40 4.50 - 5.50 M/mcL LAB HEMETOLOGY METHOD 08/11/2024 8:18 AM EDT [facility] Hemoglobin 12.5(L) 13.5 - 17.5 g/dL LAB HEMETOLOGY METHOD 08/11/2024 8:18 AM [facility] Hematocrit 41.2(L) 42.0 - 54.0 % LAB HEMETOLOGY METHOD 08/11/2024 8:18 AM [facility] MCV 76.0(L) 79.0 - 98.0 FL LAB HEMETOLOGY METHOD 08/11/2024 8:18 AM [facility] MCH 23.1(L) 27.0 - 32.0 pcg LAB HEMETOLOGY METHOD 08/11/2024 8:18 AM [facility] MCHC 30.3(L) 32.0 - 37.0 g/dL LAB HEMETOLOGY METHOD 08/11/2024 8:18 AM [facility] RDW 16.1(H) 11.0 - 15.0 % LAB HEMETOLOGY METHOD 08/11/2024 8:18 AM [facility] Platelets 296 130 - 400 K/mcL LAB HEMETOLOGY METHOD 08/11/2024 8:18 AM [facility] MPV 9.7 7.0 - 11.0 FL LAB HEMETOLOGY METHOD 08/11/2024 8:18 AM [facility] NRBC 0.0 <1.0 % LAB HEMETOLOGY METHOD 08/11/2024 8:18 AM [facility] NRBC Absolute 0.00 <0.10 K/mcL LAB HEMETOLOGY METHOD 08/11/2024 8:18 AM [facility] Neutrophils Relative 59.8 % LAB HEMETOLOGY METHOD 08/11/2024 8:18 AM [facility] Lymphocytes Relative 25.8 % LAB HEMETOLOGY METHOD 08/11/2024 8:18 AM [facility] Monocytes Relative 9.3 % LAB HEMETOLOGY METHOD 08/11/2024 8:18 AM [facility] Eosinophils Relative 4.4 % LAB HEMETOLOGY METHOD 08/11/2024 8:18 AM EDT [facility] Basophils Relative 0.4 % LAB HEMETOLOGY METHOD 08/11/2024 8:18 AM EDT [facility] Immature Granulocytes Relative 0.3 % LAB HEMETOLOGY METHOD 08/11/2024 8:18 AM EDT [facility] Neutrophils Absolute 4.23 1.50 - 7.00 K/mcL LAB HEMETOLOGY METHOD 08/11/2024 8:18 AM EDT [facility] Lymphocytes Absolute 1.83 1.00 - 5.00 K/mcL LAB HEMETOLOGY METHOD 08/11/2024 8:18 AM EDT [facility] Monocytes Absolute 0.66 0.20 - 1.00 K/mcL LAB HEMETOLOGY METHOD 08/11/2024 8:18 AM EDT [facility] Eosinophils Absolute 0.31 0.00 - 0.50 K/mcL LAB HEMETOLOGY METHOD 08/11/2024 8:18 AM EDT [facility] Basophils Absolute 0.03 0.00 - 0.20 K/mcL LAB HEMETOLOGY METHOD 08/11/2024 8:18 AM EDT [facility] Immature Granulocytes Absolute 0.02 0.00 - 0.03 K/mcL LAB HEMETOLOGY METHOD 08/11/2024 8:18 AM EDT [facility] Blood Venous blood specimen / Unknown 08/11/2024 6:55 AM EDT 08/11/2024 7:26 AM EDT us Robert Moon MD LAB BLOOD ORDERABLES Final Resul t [facility] [address] [place] [address], * Lavender tube (08/11/2024 6:55 AM EDT) Only the most recent of2 resultswithin the time period is included. Pathologist [facility] Extra Tube Hold for add-ons. 08/11/2024 8:01 PM EDT [facility] Comment:Auto resulted. Blood Venous blood specimen / Unknown 08/11/2024 6:55 AM EDT 08/11/2024 7:32 AM EDT us Robert Moon MD LAB BLOOD ORDERABLES Final Resul t Performing Organization Address [facility] Co de Phone Number [facility] [address] [place] [address], * Thyroid stimulating hormone (08/11/2024 6:55 AM EDT) [facility] TSH 1.43 0.40 - 4.00 mcIU/mL LAB CHEMISTRY METHOD 08/11/2024 10:09 AM EDT [facility] Blood Venous blood specimen / Unknown 08/11/2024 6:55 AM EDT 08/11/2024 7:26 AM EDT us Robert Moon MD LAB BLOOD ORDERABLES Final Resul t Performing Organization Address City/[facility]/ZIP Co de Phone Number [facility] [address] [place] [address], [place] [phone] * (ABNORMAL) Hemoglobin A1c (08/11/2024 6:55 AM EDT) Only the most recent of2 resultswithin the time period is included. Pathologist [facility] Hemoglobin A1C 9.0(H) <6.5 % LAB CHEMISTRY METHOD 08/11/2024 9:04 AM EDT [facility] Mean Bld Glu Estim. 212 mg/dL LAB CHEMISTRY METHOD 08/11/2024 9:04 AM EDT [facility] Blood Venous blood specimen / Unknown 08/11/2024 6:55 AM EDT 08/11/2024 7:26 AM EDT us Robert Moon MD LAB BLOOD ORDERABLES Final Resul t Performing Organization Address [facility] Co de Phone Number [facility] [address] [place] [address], [place] [phone] * (ABNORMAL) Ammonia (08/11/2024 6:55 AM EDT) Only the most recent of2 resultswithin the time period is included. Ammonia 62(H) 11 - 35 mcmol/L LAB CHEMISTRY METHOD 08/11/2024 8:49 AM EDT [facility] Blood Venous blood specimen / Unknown 08/11/2024 6:55 AM EDT 08/11/2024 7:26 AM EDT us Robert Moon MD LAB BLOOD ORDERABLES Final Resul t Performing Organization Address [facility] de Phone Number [facility] [address] [place] [address], [place] [phone] * (ABNORMAL) Comprehensive metabolic panel (08/11/2024 6:55 AM EDT) Only the most recent of2 resultswithin the time period is included. Sodium 131(L) 133 - 145 mmol/L LAB CHEMISTRY METHOD 08/11/2024 8:49 AM EDT [facility] Potassium 3.8 3.5 - 5.5 mmol/L LAB CHEMISTRY METHOD 08/11/2024 8:49 AM EDT [facility] Chloride 98 96 - 110 mmol/L LAB CHEMISTRY METHOD 08/11/2024 8:49 AM EDT [facility] CO2 25 21 - 32 mmol/L LAB CHEMISTRY METHOD 08/11/2024 8:49 AM EDT [facility] Anion Gap 8 3 - 11 LAB CHEMISTRY METHOD 08/11/2024 8:49 AM EDT [facility] Glucose 183(H) 70 - 100 mg/dL LAB CHEMISTRY METHOD 08/11/2024 8:49 AM [facility] BUN 15 5 - 25 mg/dL LAB CHEMISTRY METHOD 08/11/2024 8:49 AM [facility] Creatinine 0.98 0.70 - 1.30 mg/dL LAB CHEMISTRY METHOD 08/11/2024 8:49 AM [facility] eGFR 94 >=60 mL/min/1. 73m2 LAB CHEMISTRY METHOD 08/11/2024 8:49 AM [facility] Comment:Calculation based on the??Chronic Kidney Disease Epidemiology Collaboration (CKD-EPI) equation refit??without adjustment for race. BUN/Creatinine Ratio 15.3 LAB CHEMISTRY METHOD 08/11/2024 8:49 AM [facility] Calcium 9.3 8.5 - 10.5 mg/dL LAB CHEMISTRY METHOD 08/11/2024 8:49 AM [facility] AST (SGOT) 13 10 - 42 unit/L LAB CHEMISTRY METHOD 08/11/2024 8:49 AM [facility] ALT (SGPT) 18 10 - 60 unit/L LAB CHEMISTRY METHOD 08/11/2024 8:49 AM [facility] Alkaline Phosphatase 88 42 - 121 unit/L LAB CHEMISTRY METHOD 08/11/2024 8:49 AM [facility] Total Protein 7.5 6.0 - 8.0 g/dL LAB CHEMISTRY METHOD 08/11/2024 8:49 AM [facility] Albumin 4.1 3.2 - 5.0 g/dL LAB CHEMISTRY METHOD 08/11/2024 8:49 AM [facility] Total Bilirubin 0.5 0.0 - 1.4 mg/dL LAB CHEMISTRY METHOD 08/11/2024 8:49 AM [facility] Blood Venous blood specimen / Unknown 08/11/2024 6:55 AM EDT 08/11/2024 7:26 AM EDT us Robert Moon MD LAB BLOOD ORDERABLES Final Resul t [facility] ([facility]) [facility] [address] [place] [address], from Last 3 Months Insurance MEDICARE Care Teams Spray Machine Tender Relationship Specialty Start Date End Date Robert Moon MD [address] [place] [address] Dr [address] [place], [place] PCP - General Internal Medicine 06/27/24
--- NOTE | 2024-09-01 08:29 | MHC.OFFVISWM ---
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 BMI 43.3 *SEE COMMENTS* Allergies penicillin G Allergy (Mild, Verified 09/01/24 08:29) Rash sulbactam Allergy (Unknown, Verified 09/01/24 08:29) Unknown Medication List - Last Reconciled 09/01/24 by Kingston Mosquera MD acetaminophen 650 mg PO Q6H PRN atorvastatin 40 mg PO QPM bisacodyl (Laxative (bisacodyl)) 10 mg AR DAILY PRN clozapine 12.5 mg PO DAILY CPAP (CPAP Machine/Device) As directed dapagliflozin propanediol 5 mg PO DAILY dextromethorphan-guaifenesin 10-100 mg/5 mL (Henrietta-Tussin DM) 10 mL PO Q4H PRN famotidine 40 mg PO BEDTIME fluoride (sodium) 1.1% (PreviDent) 1 appl dental BEDTIME gemfibrozil 600 mg PO BID glucagon (Glucagon Emergency Kit) 1 mg subcut Q20M PRN haloperidol 2 mg PO BID ibuprofen 800 mg PO Q8H insulin glargine 30 units subcut BID lactulose 30 grams PO ONCE lisinopril-hydrochlorothiazide 10-12.5 mg 1 tab PO DAILY metformin 1,000 mg PO BID omeprazole 20 mg PO BID ondansetron HCl 4 mg PO Q4H oxcarbazepine 150 mg PO BID propranolol 10 mg PO BID sennosides (senna) 8.6 mg PO DAILY PRN sodium phosphates 19-7 gram/118 mL (Enema) 118 mL AR DAILY PRN tolterodine 2 mg PO BID topiramate 100 mg PO BID HPI Comments Details: Wakes up 6am, Sleeps: 8pm Breakfast: 8am (Cole with eggs, pancakes) Lunch: 12pm (sandwiches) Dinner: 6pm (pizza, chicken with rice Snacks: 3.30pm (cookies), 7.30pm (cookies) Exercise: access to stationary bike Beverages: Coffee (6 cups/day with sweetener), tea: none, soda (diet Gingerale 2 cups/day), juice: none, ETOH: none PFSH Medical History (Updated 09/01/24 @ 08:40 by Kingston Mosquera MD) DJD (degenerative joint disease) Stress incontinence (female) (male) Manic depression Hyperlipidemia Hypertension Insulin dependent type 2 diabetes mellitus Sleep apnea with use of continuous positive airway pressure (CPAP) GERD (gastroesophageal reflux disease) Morbid obesity Surgical History (Updated 09/01/24 @ 08:40 by Kingston Mosquera MD) History of umbilical hernia repair Hx of hand surgery Family History (Updated 04/27/24 @ 13:25 by Geno Styles CMA) Mother Pancreatic cancer Father No problems noted. Social History (Updated 04/27/24 @ 13:26 by Geno Styles CMA) Alcohol intake: never Patient Tobacco Use Status: Never used Tobacco Physical Exam GI Inspection: Yes normal to inspection (android body habitus), Yes incision (well healed) and Yes obesity Palpation (GI): Soft to palpation Extrem Right lower extremity: normal to inspection Left lower extremity: normal to inspection Assessment & Plan Assessment & Plan (1) Morbid obesity: Code(s): E66.01 - Morbid (severe) obesity due to excess calories Category: Medical Plan: 1. We discussed about the lap sleeve gastrectomy. I emphasized the importance of close follow-up, adherence to instructions and good communication. The surgery does not replace the need to change your lifestlyle which is the cause of the obesity problem. The surgery provides the motivation to try again to change your lifestyle, it reduces the appetite and make the transition to a better lifestyle easier and doubles the amount of weight you would lose compared to doing the lifestyle change without the surgery. You will need to be on a liquid diet with protein shakes for 2 weeks before surgery to maximize weight loss and boost your nutritional status to recover better from surgery and also for the first two weeks after surgery to let the stomach heal before we introduce other foods. After the first 2 weeks we will introduce protein bars and soft foods like scrambled eggs, cottage cheese and yogurt and after the 6th week will introduce meat, fish and cooked vegetables in small amounts. Over time you should be able to eat everything in small amounts. Side effects like nausea, vomiting, heartburn or abdominal pain are not common in the practice unless you are not following in the practice. This operation requires lifetime commitment to following in our practice and communication with me. You will much less weight and experience side effects if you don?t communicate or not following in the practice. Complications are rare and in our practice is about 1/10 of the national average. 2) Because the patient is living in a Rehab facility and he has no personal financial means or complete control over his diet, the following next steps wre discussed to determine his eligibility for bariatric surgery: a) We will establish a direct communication through his cell phone b) our nurse will call his facility on Wednesday to determine the following: i) if they can provide proper food to him on a daily basis even if it is out of their standard menu ii) if they can measure his food portions according to our protocol iii) if they can either purchase a body composition scale so he can send me weight measurements weekly, or provide transportation for him to come to our office weekly for weight checks c) he will have an appointment with our therapist and our therapist will communicate with his psychiatrist to determine his eligibility for bariatric surgery from a mental health standpoint. Patient is in agreement with this plan Orders: Referrals Behavioral Health Referral F31.9 - Bipolar disorder, unspecified
[2024-09-01 17:25] VITALS: BMI 43.9
== END 2024-09-01 17:36 | disposition home or self-care (01) ==
LOC: HO.HBS 07:55
PROVIDERS: PCP Hospitalist; Visit Provider Surgery
DX: E66.813 Obesity, class 3 (principal); Z68.41 Body mass index [BMI] 40.0-44.9, adult
CPT/HCPCS: 99204

== ENCOUNTER → 2024-09-01 07:55 | Outpatient (BNVA) | payer MEDICARE, SELFPAY | PROVIDERS: PCP Hospitalist; Visit Provider Surgery | DX: E66.01 Morbid (severe) obesity due to excess calories (principal); Z68.41 Body mass index [BMI] 40.0-44.9, adult | CPT/HCPCS: 99202 ==